=== PATIENT | male | born 1960 | race Caucasian/White ===

== ENCOUNTER 2018-04-04 08:54 | Day surgery (SDC) | payer BC ==
[2018-04-04] MEDS: BUPIVACAINE 0.5%/EPI (SDV) 30 ML INJ
[2018-04-04] MEDS ORDERED: METOCLOPRAMIDE 10 MG INJ IV (10:30)
[2018-04-04] MEDS ORDERED: MIDAZOLAM 1 MG/ML 2 ML INJ IV (10:30)
[2018-04-04] MEDS ORDERED: ONDANSETRON 4 MG INJ IV ×2 (10:30→13:00)
[2018-04-04] MEDS ORDERED: hydrALAzine 20 MG INJ IV (10:30)
[2018-04-04] MEDS ORDERED: OXYCODONE/ACETAMINOPHEN (5/325) TAB PO ×2 (10:30)
[2018-04-04] MEDS ORDERED: HYDROmorphONE 1 MG/5 ML IV SYRINGE IV ×3 (10:30)
[2018-04-04] MEDS ORDERED: EPHEDrine SULFATE 50 MG/5 ML SYG IV (10:30)
[2018-04-04] MEDS ORDERED: FENTAnyl 50 MCG/ML VIAL IV ×3 (10:30)
[2018-04-04] MEDS ORDERED: LABETALOL HCL 20MG INJ IV (10:30)
[2018-04-04] MEDS ORDERED: DIPHENHYDRAMINE 50 MG INJ IV (10:30)
[2018-04-04] MEDS ORDERED: MEPERIDINE 25 MG INJ IV (10:30)
[2018-04-04] MEDS ORDERED: NEOSTIGMINE 3 MG/3 ML SYRINGE ×2 (10:48→11:22)
[2018-04-04] MEDS ORDERED: PROPOFOL 20 ML (10:48)
[2018-04-04] MEDS ORDERED: ROCURONIUM 50 MG INJ (10:48)
[2018-04-04] MEDS ORDERED: SUCCINYLCHOLINE CHLORIDE 100 MG/5 ML SYG IV (10:48)
[2018-04-04] MEDS ORDERED: LIDOCAINE 2% (SDV) 5 ML INJ (10:48)
[2018-04-04] MEDS ORDERED: GLYCOPYRROLATE 0.4 MG INJ ×3 (10:49→11:22)
[2018-04-04] MEDS ORDERED: MEPERIDINE /PF (100 MG/2 ML) AMPULE (10:51)
[2018-04-04] MEDS ORDERED: CEFAZOLIN 1 GM INJ (10:51)
[2018-04-04] MEDS ORDERED: morphine 2 MG INJ IV (13:00)
[2018-04-04] MEDS: D5W-0.45 NACL + KCL 20 MEQ 1,000 ML IV ×2 (15:08→22:50)
[2018-04-04] MEDS: RANOLAZINE (SR) 500 MG TAB PO (22:50)
[2018-04-05] MEDS: D5W-0.45 NACL + KCL 20 MEQ 1,000 ML IV ×3 (04:44→14:49)
[2018-04-05 05:26] LABS: ADD MAN DIFF? NO
[2018-04-05 05:35] LABS: WHITE BLOOD COUNT 7.2 10^3/ul (4.8-10.8)
[2018-04-05 05:35] LABS: ABNORMAL IP MESSAGE 1; BASOPHILS % 0.1 % (0.0-2.0); EOSINOPHILS # 0.1 10^3/ul (0.0-0.5); HEMATOCRIT 43.1 % (42.0-52.0); HEMOGLOBIN 14.3 g/dl (14.0-18.0); LYMPHOCYTES # 0.6 10^3/ul (0.8-2.9); LYMPHOCYTES % 7.9 % (15.0-51.0); MEAN CORPUSCULAR HEMOGLOBIN 27.7 pg (29.0-33.0); MEAN CORPUSCULAR HGB CONC 33.2 g/dl (32.0-37.0); MEAN CORPUSCULAR VOLUME 83.4 fl (82.0-101.0); MEAN PLATELET VOLUME 9.4 fl (7.4-10.4); MONOCYTE # 0.4 10^3/ul (0.3-0.9); MONOCYTES % 5.4 % (0.0-11.0); NEUTROPHIL # 6.2 10^3/ul (1.6-7.5); NEUTROPHILS % 85.3 % (39.0-77.0); PLATELET COUNT 204 10^3/UL (140-415); POSITIVE DIFF @See below; RED BLOOD COUNT 5.17 10^6/ul (4.70-6.10); RED CELL DISTRIBUTION WIDTH 12.7 % (11.5-14.5)
[2018-04-05] MEDS: PANTOPRAZOLE (EC) 40 MG TAB PO (06:01)
[2018-04-05 06:14] LABS: ANION GAP 9 (8-16); BLOOD UREA NITROGEN 14 mg/dl (7-20); CALCIUM 8.5 mg/dl (8.4-10.2); CARBON DIOXIDE 29 mmol/L (21-31); CHLORIDE 106 mmol/L (97-110); CREATININE 0.96 mg/dl (0.61-1.24); GLUCOSE 110 mg/dl (70-220); POTASSIUM 4.3 mmol/L (3.5-5.1); SODIUM 140 mmol/L (135-144)
[2018-04-05] MEDS: RANOLAZINE (SR) 500 MG TAB PO ×2 (09:47→20:47)
[2018-04-06] MEDS: D5W-0.45 NACL + KCL 20 MEQ 1,000 ML IV (02:36)
[2018-04-06 06:03] LABS: ADD MAN DIFF? NO
[2018-04-06 06:18] LABS: WHITE BLOOD COUNT 5.8 10^3/ul (4.8-10.8)
[2018-04-06 06:18] LABS: BASOPHILS % 0.2 % (0.0-2.0); EOSINOPHILS # 0.1 10^3/ul (0.0-0.5); EOSINOPHILS % 0.9 % (0.0-7.0); HEMATOCRIT 40.4 % (42.0-52.0); HEMOGLOBIN 13.6 g/dl (14.0-18.0); LYMPHOCYTES % 17.2 % (15.0-51.0); MEAN CORPUSCULAR HEMOGLOBIN 27.1 pg (29.0-33.0); MEAN CORPUSCULAR HGB CONC 33.7 g/dl (32.0-37.0); MEAN CORPUSCULAR VOLUME 80.5 fl (82.0-101.0); MEAN PLATELET VOLUME 9.8 fl (7.4-10.4); MONOCYTE # 0.5 10^3/ul (0.3-0.9); MONOCYTES % 7.7 % (0.0-11.0); NEUTROPHIL # 4.3 10^3/ul (1.6-7.5); NEUTROPHILS % 73.8 % (39.0-77.0); PLATELET COUNT 175 10^3/UL (140-415); RED BLOOD COUNT 5.02 10^6/ul (4.70-6.10); RED CELL DISTRIBUTION WIDTH 12.8 % (11.5-14.5)
[2018-04-06] MEDS: PANTOPRAZOLE (EC) 40 MG TAB PO (06:32)
[2018-04-06] MEDS: RANOLAZINE (SR) 500 MG TAB PO (09:05)
== END 2018-04-06 14:10 | disposition home or self-care (01) ==
LOC: SDS 08:54 → REC 15:52 → SDS 04-06 14:10 → MS1 12:49 → SDS 12:49 → REC 12:49 → MS1 15:52
DX: D17.1 Benign lipomatous neoplasm of skin and subcutaneous tissue of trunk (principal)
CPT/HCPCS: 14000; 80048; 85025; 88305